=== PATIENT | male | born 1990 | race Two or more races ===

== ENCOUNTER 2022-10-11 14:57 | Emergency (ER) | payer OTHER ==
[2022-10-11 15:06] VITALS: BP 116/76; PULSE 64; RESP 18; TEMP 98; BMI 33.5
== END 2022-10-11 17:08 | disposition home or self-care (01) ==
LOC: JERFT 14:57
DX: S80.861A Insect bite (nonvenomous), right lower leg, initial encounter (principal); S80.862A Insect bite (nonvenomous), left lower leg, initial encounter; R05.9 Cough, unspecified; W57.XXXA Bitten or stung by nonvenomous insect and other nonvenomous arthropods, initial encounter; Z20.822 Contact with and (suspected) exposure to COVID-19
CPT/HCPCS: 0241U-QW; 71046-TC-FY; 99284-25